=== PATIENT | female | born 1965 | race Caucasian/White ===

== ENCOUNTER 2020-10-02 16:32 | Outpatient (CLI) | payer OTHER, SELFPAY ==
--- NOTE | ~2020-10-02 | MM_ITS ---
EXAMINATION: MM screening zane BI w juni HISTORY: Screening mammogram TECHNIQUE: Craniocaudal and mediolateral oblique 3-D tomosynthesis images were obtained and synthetic 2-D images were generated. CAD analysis was submitted and interpreted. COMPARISON: 07/03/2019, , 01/17/2017 bilateral digital screening mammogram examinations BREAST PARENCHYMAL COMPOSITION: There are scattered areas of fibroglandular density. FINDINGS: Benign appearing stable circumscribed intramammary upper outer quadrant right breast lymph node. There is no evidence of suspicious mass, calcification, or architectural distortion to suggest malignancy in either breast. There has been no suspicious interval change. IMPRESSION: 1. No mammographic evidence of malignancy. 2. Recommend routine screening mammography in one year. BI-RADS Category 2: Benign finding(s). Reviewed, dictated and finalized at location A. TER PROJECTIONIST
== END 2020-10-02 16:33 | disposition home or self-care (01) ==
PROVIDERS: PCP Family Medicine; Visit Provider Nurse Practitioner
DX: Z12.31 Encounter for screening mammogram for malignant neoplasm of breast (principal)
CPT/HCPCS: 77063; 77067

== ENCOUNTER 2020-10-25 08:58 | Outpatient (CLI) | payer OTHER, SELFPAY ==
--- NOTE | ~2020-10-25 | DEXA_ITS ---
Bone Density Report Name: Meche Angel Age: 54 Sex: Female Ethnicity: White Date of : 1965 Indication: osteopenia; height loss; postmenopausal Referring Provider: JESSICA, SEBASTIAN Study: Bone densitometry was performed. Exam Date: October 25, 2020 Accession number: [id number] Bone Density: Region BMD T-score Z-score Classification AP Spine (L1-L4) 0.792 -2.3 -1.2 Osteopenia Femoral Neck (Left) 0.600 -2.2 -1.1 Osteopenia Total Hip (Left) 0.761 -1.5 -0.8 Osteopenia Total Hip Bilateral Avg 0.738 -1.7 -1.0 Osteopenia Femoral Neck (Right) 0.542 -2.8 -1.7 Osteoporosis Total Hip (Right) 0.714 -1.9 -1.1 Osteopenia World Health Organization criteria for BMD impression classify patients as: Normal (T-score at or above -1.0), Osteopenia (T-score between -1.0 and -2.5), or Osteoporosis (T-score at or below -2.5). 10-year Fracture Risk: FRAX not reported because: Some T-score for Spine Total or Hip Total or Femoral Neck at or below -2.5 Previous Exams: Region Exam Age BMD T-score BMD Change BMD Change Date g/cm2 vs Baseline vs Previous AP Spine(L1-L4) 10/25/2020 54 0.792 -2.3 -0.021(-2.5%) -0.038(-4.6%)* 01/17/2017 51 0.830 -2.0 0.018(2.2%) 0.018(2.2%) 12/26/2014 49 0.812 -2.1 Total Hip(Left) 10/25/2020 54 0.761 -1.5 -0.031(-4.0%)* -0.057(-6.9%)* 01/17/2017 51 0.818 -1.0 0.025(3.2%) 0.025(3.2%) 12/26/2014 49 0.793 -1.2 Total Hip(Right) 10/25/2020 54 0.714 -1.9 -0.015(-2.0%) -0.030(-4.1%)* 01/17/2017 51 0.745 -1.6 0.015(2.1%) 0.015(2.1%) 12/26/2014 49 0.729 -1.7 *Denotes significance at 95% confidence level, LSC for AP Spine = 0.022 g/cm2, LSC for Total Hip = 0.027 g/cm2 Clinical Information Provided by Patient: Has used the following medications: Vitamin D, Calcium Patient maximum height was 66 Menopause Age: 47 Onset of menses at age 12 Number of children 3 Missed period for more than 6 months in a row Impression: The patient has osteoporosis, based on the Right Femoral Neck T-score. The BMD for the AP Spine(L1-L4) decreased, changing by -4.6% since the last DXA exam. The BMD for the Total Hip(Left) decreased, changing by -6.9% since the last DXA exam. The BMD for the Total Hip(Right) decreased, changing by -4.1% since the last DXA exam. Discussion: INCREASED RISK OF FRACTURE. BONE DENSITY IS UNDESIRABLY LOW AT ONE OR MORE SKELETAL SITES, CONSISTENT WITH POSTMENOPAUSAL OSTEOPOROSIS. Thi
== END 2020-10-25 08:59 | disposition home or self-care (01) ==
PROVIDERS: PCP Family Medicine; Visit Provider Nurse Practitioner
DX: M85.88 Other specified disorders of bone density and structure, other site (principal); M85.852 Other specified disorders of bone density and structure, left thigh; M85.851 Other specified disorders of bone density and structure, right thigh; M81.0 Age-related osteoporosis without current pathological fracture
CPT/HCPCS: 77080

== ENCOUNTER 2021-12-05 07:57 | Outpatient (CLI) | payer OTHER, SELFPAY ==
--- NOTE | ~2021-12-05 | MM_ITS ---
EXAMINATION: MM screening zane BI w juni HISTORY: Screening mammogram TECHNIQUE: Craniocaudal and mediolateral oblique 3-D tomosynthesis images were obtained and synthetic 2-D images were generated. CAD analysis was submitted and interpreted. COMPARISON: October 02, 2020, July 03, 2019, 03/28/2018 bilateral screening mammogram examination s BREAST PARENCHYMAL COMPOSITION: There are scattered areas of fibroglandular density. FINDINGS: Stable benign-appearing lymph node in the upper outer right breast. There is no evidence of suspicious mass, calcification, or architectural distortion to suggest malignancy in either breast. There has been no suspicious interval change. IMPRESSION: 1. No mammographic evidence of malignancy. 2. Recommend routine screening mammography in one year. BI-RADS Category 2: Benign finding(s). Reviewed, dictated and finalized at location A.
== END 2021-12-05 07:58 | disposition home or self-care (01) ==
LOC: ANHIMG 07:58
PROVIDERS: PCP Family Medicine; Visit Provider Nurse Practitioner
DX: Z12.31 Encounter for screening mammogram for malignant neoplasm of breast (principal)
CPT/HCPCS: 77063; 77067

== ENCOUNTER 2022-04-24 07:40 | Outpatient (CLI) | payer OTHER, SELFPAY ==
[2022-04-24 08:07] LABS: Alanine Aminotransferase 21 U/L (6-35); Albumin Level 4.5 g/dL (3.5-5.1); Alkaline Phosphatase 85 U/L (38-126); Anion Gap 11 mmol/L (8-16); Aspartate Amino Transferase 31 U/L (14-36); Bilirubin,Total 0.5 mg/dL (0.2-1.3); Blood Urea Nitrogen 13 mg/dL (7-17); Carbon Dioxide 28 mmol/L (22-30); Chloride 101 mmol/L (98-107); Cholesterol 241 mg/dL (0-200); Estimated Glomerular Filt Rate > 60; Glucose 101 mg/dL (65-110); HDL Direct 56 mg/dL; Potassium 3.9 mmol/L (3.4-5.0); Sodium 140 mmol/L (137-145); Triglycerides 68 mg/dL (<150)
[2022-04-24 08:18] LABS: LDL Cholesterol Direct 128 mg/dL
[2022-04-24 09:00] LABS: Thyroid Stimulating Hormone Reflex 0.826 uIU/mL (0.465-4.68)
== END 2022-04-24 07:41 | disposition home or self-care (01) ==
LOC: ANHLAB 07:42
PROVIDERS: PCP Family Medicine; Visit Provider Physician Assistant Medical
DX: E78.2 Mixed hyperlipidemia (principal); R53.83 Other fatigue
CPT/HCPCS: 36415; 80053; 80061; 84443

== ENCOUNTER 2022-09-16 17:03 | Observation (INO) | payer OTHER, SELFPAY ==
[2022-09-16] VITALS (28 sets, daily range): BP systolic 106–154; BP diastolic 58–86; PULSE 59–86; RESP 11–23; TEMP 36.7–36.9; O2SAT 96–100; BMI 22.2
--- NOTE | ~2022-09-16 | XR_ITS ---
EXAMINATION: XR chest 2V DATE: 09/16/2022 17:57 INDICATION: Left upper chest pain radiating into the neck TECHNIQUE: PA and lateral views of the chest were obtained. COMPARISON: Chest radiograph dated 06/03/2015 FINDINGS: The lungs remain clear with no focal airspace opacities, pulmonary edema, pleural effusion or pneumot horax. The cardiomediastinal silhouette is normal. Mild to moderate mid thoracic predominant spondylo sis. IMPRESSION: 1. No acute cardiopulmonary disease. Reviewed, dictated and finalized at location A. 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
--- NOTE | ~2022-09-16 | CT_ITS ---
EXAMINATION: CTA chest PE protocol DATE: 09/16/2022 20:32 INDICATION: Chest pain TECHNIQUE: Computed tomography (CT) pulmonary angiogram of the chest was performed with 100 mL Omnipa que-350 intravenous contrast. Additional 3D reconstructions utilizing coronal maximum intensity proje ction (MIP) were performed. The dose-length product was 153.65 mGy-cm. COMPARISON: None FINDINGS: Excellent contrast opacification of the pulmonary arteries. There is moderate streak artifact from de nse contrast in the superior vena cava and right atrium. Mild scattered respiratory motion artifact w hich does not significantly limit evaluation. No pulmonary embolism. Mild atelectasis at the bilatera l posterior basilar lower lobes. No pneumonia, pulmonary edema, pleural effusion or pneumothorax. Hea rt size is normal. No pericardial effusion. Thoracic aorta is normal in caliber with no dissection. N o pathologically enlarged thoracic lymphadenopathy. There is localized upper abdomen is unremarkable. Mild to moderate thoracic spondylosis. IMPRESSION: 1. No pulmonary embolism or other acute cardiopulmonary disease. Reviewed, dictated and finalized at location A. TH INSURANCE ADJUSTER
--- NOTE | 2022-09-16 17:07 | ECG_ITS ---
Measurements Intervals [place] Rate: 59 P: 60 MA: 136 QRS: 40 QRSD: 106 T: 70 QT: 416 QTc: 415 Interpretive Statements SINUS BRADYCARDIA WITH OCCASIONAL SUPRAVENTRICULAR PREMATURE COMPLEXES RV CONDUCTION DELAY OTHERWISE NORMAL ECG NO PREVIOUS ECG AVAILABLE FOR COMPARISON Electronically Signed On 09-17-2022 13:02:45 COAL DIGGER by Garrett Mckeon M.D.
[2022-09-16 17:32] LABS: Basophils Absolute Auto 0.1 K/mm3 (0.0-0.1); Basophils Percent Auto 0.7 % (0.2-1.2); Eosinophils Absolute Auto 0.3 K/mm3 (0-0.3); Eosinophils Percent Auto 4.3 % (0-4.4); Hematocrit 39.8 % (37.0-47.0); Immature Granulocyte Absolute 0.01 K/mm3 (0.00-0.031); Immature Granulocyte Percent A 0.1 % (0-0.5); Lymphocytes Absolute Auto 2.85 K/mm3 (0.9-3.2); Lymphocytes Percent Auto 39.4 % (18.3-44.2); Mean Corpuscular HGB Conc 32.7 g/dl (32-36); Mean Corpuscular Hemoglobin 29.3 pg (26-34); Mean Corpuscular Volume 89.6 fl (80-100); Mean Platelet Volume 8.9 fl (7.4-10.4); Monocytes Absolute Auto 0.4 K/mm3 (0.1-0.6); Monocytes Percent Auto 6.1 % (2.6-8.5); Neutrophils Absolute Auto 3.6 K/mm3 (1.3-6.7); Neutrophils Percent Auto 49.4 % (45.5-73.1); Platelet Count Result 267 k/mm3 (150-375); Red Blood Count 4.44 M/mm3 (4.2-5.4); Red Cell Distribution Width 12.6 % (11.5-14.5); White Blood Count 7.2 K/mm3 (4.5-10.0)
[2022-09-16 17:36] LABS: INR 1.1; Prothrombin Time 13.3 Seconds (11.1-14.7)
[2022-09-16 17:37] LABS: Partial Thromboplastin Time 27.9 SECONDS (22.3-36.8)
[2022-09-16 17:38] LABS: Alanine Aminotransferase 19 U/L (6-35); Albumin Level 4.8 g/dL (3.5-5.1); Alkaline Phosphatase 95 U/L (38-126); Anion Gap 6 mmol/L (8-16); Aspartate Amino Transferase 31 U/L (14-36); Bilirubin,Total 0.5 mg/dL (0.2-1.3); Blood Urea Nitrogen 14 mg/dL (7-17); Calcium 9.4 mg/dL (8.4-10.2); Carbon Dioxide 30 mmol/L (22-30); Chloride 100 mmol/L (98-107); Estimated Glomerular Filt Rate > 60; Glucose 153 mg/dL (65-110); Lipase 78 U/L (23-300); Potassium 3.8 mmol/L (3.4-5.0); Sodium 136 mmol/L (137-145)
[2022-09-16 17:53] LABS: Troponin I < 0.012 ng/mL (0.000-0.034)
--- NOTE | 2022-09-16 20:02 | ED.CHESTPAIN ---
HPI - Chest Pain General Chief Complaint: Chest Pain Stated Complaint: Chest Pain Time Seen by Provider: 09/16/22 19:16 Source: RN notes reviewed History of Present Illness HPI narrative: Patient presents emergency department from home for chest pain. Patient states for the past week she has been having intermittent chest pain in the left side of the chest. The pain is described as pressure in nature with radiation up into her neck and jaw as well as down her left arm. States that nothing seems to make the pain better or worse she denies any shortness of breath with the symptoms she denies any nausea or vomiting. She denies any previous cardiac history. States that there is family history of cardiac disease. States that she did have similar symptoms back in 2016 and had a heart catheterization at that time that showed no acute process Related Data Allergies Allergy/AdvReac Type Severity Reaction Status Date / Time No Known Allergies Allergy Verified 09/16/22 19:24 Review of Systems Review of Systems: Gen.: Denies fevers or chills ENT: Denies congestion Respiratory: Denies shortness of breath or cough CV: See HPI GI: Denies abdominal pain nausea, emesis or diarrhea Musculoskeletal: Denies back pain or muscle pain Neuro: Denies numbness, tingling, weakness or focal weakness Skin: Denies rash Except as documented, all other systems reviewed and negative [facility] Past Medical History Medical History (Updated 09/16/22 @ 21:40 by Jae Aceves DO) Patient denies significant medical history Family History Family History Mother Hypertension Family history of elevated blood lipids Father Family history of diabetes mellitus in first degree relative Diabetes mellitus Grandparent Family history of cardiovascular disease Social History Social History Smoking status: Never smoker Second hand tobacco smoke exposure: No Alcohol intake: current Exam Narrative: APPEARANCE: No acute distress, nontoxic, resting in bed EYES: EOMI HEENT: Normocephalic, atraumatic, OMM RESPIRATORY: No respiratory distress Clear to auscultation bilaterally with no rhonchi wheezing or rales. CARDIOVASCULAR: Regular rate and rhythm without murmurs rubs or gallops. ABDOMINAL: Soft, nontender, nondistended, no rebound or guarding MUSCULOSKELETAl: Moves all extremities. No clubbing, cyanosis or edema. NEURO: Awake and alert. Following commands, speech normal, no focal deficits SKIN:: Warm, dry. No rashes lesions or abrasions PSYCHIATRIC: Normal affect/mood, Course Course Emergency Course: Review of records able to find Dr Reddy note noting need for cardiac cath of patient's catheter cardiac [facility] and does not have records of cath Called and discussed with Dr. Alvarado for cardiology agrees with consult Called and discussed with Dr. Anne agrees with admission to hospital service Discussed with patient and family results of workup and diagnosis. Discussed need for admission. Patient and family understand and agree to current treatment plan Vital Signs Vital signs: Vital Signs Temperature 98.4 F 09/16/22 17:07 Pulse Rate 65 09/16/22 17:07 Respiratory Rate 18 09/16/22 17:07 Blood Pressure 154/86 H 09/16/22 17:07 Pulse Oximetry 100 09/16/22 17:07 Oxygen Delivery Room Air 09/16/22 17:07 Temperature 98.4 F 09/16/22 17:07 Pulse Rate 70 09/16/22 21:05 Respiratory Rate 17 09/16/22 21:05 Blood Pressure 124/74 09/16/22 21:01 Pulse Oximetry 100 09/16/22 21:05 Oxygen Delivery Room Air 09/16/22 17:07 MDM - Chest Pain Differential Diagnosis Differential diagnosis: Likely pneumothorax, unstable angina pectoris, atypical chest pain, st elevation myocardial infarction, costochondritis and biliary colic Lab Data 09/16/22 17:16 09/16/22 17:17
[2022-09-16 20:50] LABS: Troponin I < 0.012 ng/mL (0.000-0.034)
--- NOTE | 2022-09-16 21:04 | PM.IMHP ---
H&P: HPI History of Present Illness Date/Time: 09/16/22 21:04 Chief Complaint: Chest pain Narrative: This is a 56-year-old female with known significant past medical history. Patient presents today to the emergency room due to chest pain localized to the precordial area with radiation to the jaw 0 and the arm on the left side a was while at rest patient has had catheterization back in 2016 but was found with no obstruction on a no stents were placed at that time she denies any on an of chest pain as of lately denies any nausea, vomiting, lightheadedness, shortness of breath, cough, sputum production, no nausea, no vomiting, no abdominal pain, no syncope, no near syncope no lightheadedness, no PND, no orthopnea, no leg swelling.Preliminary workup was significant for an elevated D-dimer a CT angiogram of the chest was reported as: FINDINGS: Excellent contrast opacification of the pulmonary arteries. There is moderate streak artifact from dense contrast in the superior vena cava and right atrium. Mild scattered respiratory motion artifact which does not significantly limit evaluation. No pulmonary embolism. Mild atelectasis at the bilateral posterior basilar lower lobes. No pneumonia, pulmonary edema, pleural effusion or pneumothorax. Heart size is normal. No pericardial effusion. Thoracic aorta is normal in caliber with no dissection. No pathologically enlarged thoracic lymphadenopathy. There is localized upper abdomen is unremarkable. Mild to moderate thoracic spondylosis. IMPRESSION: 1. No pulmonary embolism or other acute cardiopulmonary disease. A chest x-ray was reported as: FINDINGS: The lungs remain clear with no focal airspace opacities, pulmonary edema, pleural effusion or pneumothorax. The cardiomediastinal silhouette is normal. Mild to moderate mid thoracic predominant spondylosis. IMPRESSION: 1. No acute cardiopulmonary disease. EKG was reported as: SINUS BRADYCARDIA WITH OCCASIONAL SUPRAVENTRICULAR PREMATURE COMPLEXES INCOMPLETE RIGHT BUNDLE BRANCH BLOCK [90+ ms QRS DURATION, TERMINAL R IN V1/V2, 40+ ms S IN I/aVL/V4/V5/V6] NO PREVIOUS ECG AVAILABLE FOR COMPARISON Req Provider: Shani VELASCO Comment [id number] Troponins x3 has been undetectable Review of Systems Review of Systems: Chest pain on the precordial area with radiation to the jaw O the neck shoulder and arm occurred while at rest Constitutional: Constitutional: Denies chills, Denies fever(s), Denies malaise and Denies weakness Eyes: Eyes: Denies change in vision ENT: Denies dysphagia and Denies odynophagia Cardiovascular: Cardiovascular: Denies chest pain, Reports chest pain at rest, Denies leg edema, Denies lightheadedness, Reports radiating jaw, neck or arm pain, Denies palpitations and Denies dyspnea Respiratory: Respiratory: Denies chest congestion, Denies cough, Denies excessive phlegm production, Denies pain on inspiration, Denies dyspnea and Denies dyspnea on exertion Gastrointestinal: Gastrointestinal: Denies abdominal pain, Denies dyspepsia, Denies heartburn, Denies diarrhea, Denies nausea and Denies vomiting Genitourinary: Genitourinary: Denies dysuria Musculoskeletal: Musculoskeletal: Denies back pain, Denies myalgias, Denies joint swelling and Denies muscle weakness Integumentary/Breasts: Skin/Breast: Denies rash Neurologic: Denies vertigo, Denies dizziness, Denies focal weakness and Denies Sensory deficit (Neuro) Psychiatric: Psychiatric: Reports no additional psychiatric complaints and Reports as per HPI Endocrine: Endocrine: Denies cold intolerance, Denies flushing, Denies heat intolerance, Denies polyphagia, Denies polydipsia and Denies palpitations Hematologic/Lymphatic: Hematologic/Lymphatic: Reports no additional hematologic/lymphatic complaints and Reports as per HPI Allergic/Immunologic: Allergic/Immunologic: Reports no additional allergic/immunologic complaints and Reports as per HPI [facility] Past Medical History Medical History
[2022-09-16] MEDS: ASPIRIN 81 MG CHEWABLE TABLET 324 MG PO (21:19)
--- NOTE | 2022-09-16 23:49 | ADMGEN ---
This patient, Meche Angel, was admitted to Intensive Care Unit-8 on 09/16/22 at 2330. Patient/family oriented to hospital policies and general routines including ID bracelet, bed and alarms, visiting hours, pain management, procedures, bathroom and other care routines, personal items, smoking policy, room service/diet, and visiting hours. Information on how to activate the Rapid Response Team has been discussed. Patient/Family are encouraged to report perceived risks to care and to ask questions if they do not understand what they are told or what they should do.
[2022-09-17] VITALS (38 sets, daily range): BP systolic 113–122; BP diastolic 76–77; PULSE 48–91; RESP 12–24; TEMP 36.6; O2SAT 90–100
[2022-09-17 00:08] LABS: Troponin I < 0.012 ng/mL (0.000-0.034)
[2022-09-17 05:02] LABS: Alanine Aminotransferase 17 U/L (6-35); Albumin Level 4.3 g/dL (3.5-5.1); Alkaline Phosphatase 92 U/L (38-126); Anion Gap 6 mmol/L (8-16); Aspartate Amino Transferase 26 U/L (14-36); Bilirubin,Total 0.4 mg/dL (0.2-1.3); Blood Urea Nitrogen 15 mg/dL (7-17); Carbon Dioxide 27 mmol/L (22-30); Chloride 104 mmol/L (98-107); Estimated CRCL calculation 72 ml/min; Estimated Glomerular Filt Rate > 60; Glucose 106 mg/dL (65-110); Potassium 3.8 mmol/L (3.4-5.0); Sodium 137 mmol/L (137-145)
[2022-09-17 05:07] LABS: Basophils Absolute Auto 0.1 K/mm3 (0.0-0.1); Eosinophils Absolute Auto 0.4 K/mm3 (0-0.3); Eosinophils Percent Auto 5.4 % (0-4.4); Hematocrit 39.2 % (37.0-47.0); Hemoglobin 12.9 g/dL (12.0-15.0); Immature Granulocyte Absolute 0.02 K/mm3 (0.00-0.031); Immature Granulocyte Percent A 0.3 % (0-0.5); Lymphocytes Absolute Auto 2.67 K/mm3 (0.9-3.2); Lymphocytes Percent Auto 37.9 % (18.3-44.2); Mean Corpuscular HGB Conc 32.9 g/dl (32-36); Mean Corpuscular Hemoglobin 29.3 pg (26-34); Mean Corpuscular Volume 89.1 fl (80-100); Mean Platelet Volume 9.1 fl (7.4-10.4); Monocytes Absolute Auto 0.4 K/mm3 (0.1-0.6); Monocytes Percent Auto 5.7 % (2.6-8.5); Neutrophils Absolute Auto 3.5 K/mm3 (1.3-6.7); Neutrophils Percent Auto 49.7 % (45.5-73.1); Platelet Count Result 260 k/mm3 (150-375); Red Cell Distribution Width 12.6 % (11.5-14.5); White Blood Count 7.1 K/mm3 (4.5-10.0)
--- NOTE | 2022-09-17 09:32 | PM.CNCAR ---
Assessment and Plan Assessment and plan (1) Chest pain: Code(s): R07.9 - Chest pain, unspecified Status: Acute Plan this is a 56-year-old lady with several days of intermittent nonexertional chest pain atypical of angina. Acute coronary syndrome has been ruled out by serial troponins. She is feeling well this morning and is asymptomatic. Her principal concerning risk factor is prevalent family history in females in her family. On the other hand she is known not to have coronary artery disease in 2016 when she had similar symptoms which led to a negative angiogram being performed. In my opinion it is fine to discharge her at this time I will arrange for a stress echocardiogram to be done in my office as an outpatient. Garrett Mckeon MD [facility] History of Present Illness History of Present Illness Consult date/time: 09/17/22 09:32 Consult reason: chest pain Reason For Visit: Chest Pain Narrative: This is a very pleasant 56-year-old lady I am seeing at the request of the hospitalist's because of chest pain. The patient is known not to have coronary artery disease and came to the hospital yesterday because of chest pain she has been experiencing intermittently for about 3 days. She describes I episodes of a central dull pain that happens to occur off and on in an unpredictable fashion the pain is not exertional it is not associated with air hunger diaphoresis or nausea. She does walk about an hour per day for exercise and has not noticed that walking is triggering any of these symptoms. The patient had similar symptomatology back in 2016 there was referred to our practice she was seen by 1 of my partners and brought to the pit laborer at [facility] and found not to have any coronary artery disease at that time. This was done primarily because of a family history of probable and coronary artery disease in women in the paternal side of the family. 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 Review of Systems Constitutional: Constitutional: Reports no additional constitutional complaints Eyes: Eyes: Reports no additional eye complaints ENT: Reports system reviewed and no additional complaints, except as documented Cardiovascular: Cardiovascular: Reports as per HPI Respiratory: Respiratory: Reports no additional respiratory complaints Gastrointestinal: Gastrointestinal: Reports no additional gastrointestinal complaints Musculoskeletal: Musculoskeletal: Reports no additional musculoskeletal complaints Integumentary/Breasts: Skin/Breast: Reports system reviewed and no additional complaints, except as docu Neurologic: Reports system reviewed and no additional complaints, except as documented Endocrine: Endocrine: Reports no additional endocrine complaints Hematologic/Lymphatic: Hematologic/Lymphatic: Reports no additional hematologic/lymphatic complaints Allergic/Immunologic: Allergic/Immunologic: Reports no additional allergic/immunologic complaints [facility] Past Medical History Medical History (Updated 09/16/22 @ 21:40 by Jae Aceves DO) Patient denies significant medical history Family History Family History (Updated 09/17/22 @ 00:00 by Neelima Funes RN) Mother Family history of elevated blood lipids Hypertension Father Diabetes mellitus Family history of diabetes mellitus in first degree relative Grandparent Family history of cardiovascular disease Sibling Carotid artery embolism Arthritis, rheumatoid Social History Social History Smoking status: Never smoker Second hand tobacco smoke exposure: No Alcohol intake: current Substance use: never
--- NOTE | 2022-09-17 11:01 | PM.DS ---
DS: Admitting Diagnosis Discharge Date September 17, 2022 Admitting Diagnosis Chest pain DS: Discharge Diagnosis Discharge Diagnosis (1) Chest pain: Code(s): R07.9 - Chest pain, unspecified Status: Acute DS: Summary Hospital Course Hospital Course: Admitted for chest pain, negative workup. Cardiology consult and recommended outpatient stress test. This will be set up by Cardiology Time Spent with Patient Time attestation: Total time spent providing and/or coordinating discharge services: Exam Narrative: Patient is laying in a stretcher Const: General: comfortable, no acute distress, well developed, alert, awake, average body habitus and other (Apprehensive) Nutritional Appearance: average body habitus Orientation/consciousness: patient oriented x3 HENMT: Head: normal to inspection, normocephalic and atraumatic Ears: hearing grossly normal bilaterally Face/Nose/Sinus: normal facial exam Face and sinus: normal facial exam Eyes: General: appearance normal, both eyes and all related structures Pupils: Equal, round and reactive pupils present EOM: EOMs intact bilaterally Neck: Neck: full ROM, no lymphadenopathy and no JVD Thyroid: thyroid normal Lymphatic: no lymphadenopathy noted Resp: Effort & Inspection: normal respiratory effort and able to speak in complete sentences Auscultation: clear to auscultation bilaterally Cardio: Jugular venous distension: no JVD Rate: regular rate Rhythm: regular rhythm Heart sounds: S1 normal heart sound present and S2 normal heart sound present : General: Yes deferred Skin: Rashes: no rashes Wounds: no wounds Neuro: General: patient oriented x3 and CN's II-XI intact bilaterally Cranial nerves: Yes CN's II-XII intact bilaterally and Yes Equal, round and reactive pupils present Cognition (Neuro): normal cognition Speech: normal speech Gait exam (Neuro): Normal gait present Motor exam (neuro): 5/5 motor strength present throughout Sensory Exam: No Sensory deficit (Neuro) Extrem: General: normal to inspection, full ROM, no joint enlargement and no pedal edema DS: Data Data Completed and Pending Labs on day of discharge: Labs from last 24 hours 09/17/22 09/17/22 09/16/22 04:44 04:44 23:31 WBC 7.1 RBC 4.40 Hgb 12.9 Hct 39.2 MCV 89.1 MCH 29.3 MCHC 32.9 RDW 12.6 Plt Count 260 MPV 9.1 Immature Gran % (Auto) 0.3 Neut % (Auto) 49.7 Lymph % (Auto) 37.9 [place] % (Auto) 5.7 Eos % (Auto) 5.4 H Baso % (Auto) 1.0 Lymph # (Auto) 2.67 [place] # (Auto) 0.4 Eos # (Auto) 0.4 H Baso # (Auto) 0.1 Abs Immat Gran (auto) 0.02 Absolute Neuts (auto) 3.5 Absolute Nucleated RBC 0.0 Nucleated RBC % 0.0 PT INR APTT D-Dimer Sodium 137 Potassium 3.8 Chloride 104 Carbon Dioxide 27 Anion Gap 6 L BUN 15 Creatinine 0.70 Estim Creat Clear Calc 72 Estimated GFR > 60 Glucose 106 Calcium 9.0 Total Bilirubin 0.4 AST 26 ALT 17 Alkaline Phosphatase 92 Troponin I < 0.012 Total Protein 7.0 Albumin 4.3 Lipase 09/16/22 09/16/22 09/16/22 20:13 17:17 17:16 WBC RBC Hgb Hct MCV MCH MCHC RDW Plt Count MPV Immature Gran % (Auto) Neut % (Auto) Lymph % (Auto) [place] % (Auto) Eos % (Auto) Baso % (Auto) Lymph # (Auto) [place] # (Auto) Eos # (Auto) Baso # (Auto) Abs Immat Gran (auto) Absolute Neuts (auto) Absolute Nucleated RBC Nucleated RBC % PT INR APTT D-Dimer 0.50 H Sodium 136 L Potassium 3.8 Chloride 100 Carbon Dioxide 30 Anion Gap 6 L BUN 14 Creatinine 0.80 Estim Creat Clear Calc Not Reportable Estimated GFR > 60 Glucose 153 H Calcium 9.4 Total Bilirubin 0.5 AST 31 ALT 19 Alkaline Phosphatase 95 Troponin I < 0.012 < 0.012 Total Protein 8.0 Albumin 4.8 Lipase 78
== END 2022-09-17 11:03 | disposition home or self-care (01) ==
LOC: ANHED 21:40 → ANHICU 23:17
PROVIDERS: Emergency Medicine; Admitting Provider Internal Medicine; Emergency Provider Emergency Medicine; PCP Family Medicine; Visit Provider Chiropractor
DX: R07.9 Chest pain, unspecified (principal); R00.1 Bradycardia, unspecified; I45.10 Unspecified right bundle-branch block; I45.89 Other specified conduction disorders; Z82.49 Family history of ischemic heart disease and other diseases of the circulatory system; F10.90 Alcohol use, unspecified, uncomplicated; Z79.899 Other long term (current) drug therapy
CPT/HCPCS: 36415; 71046; 71275; 80053; 83690; 84484; 85025; 85380; 85610; 85730; 93005; 99285; A9270; G0378; Q9967

== ENCOUNTER 2022-12-01 16:33 | Outpatient (CLI) | payer OTHER, SELFPAY ==
--- NOTE | ~2022-12-01 | US_ITS ---
EXAMINATION: US axilla LT HISTORY: Asymmetry of the left axilla TECHNIQUE: Targeted ultrasound is performed in the area of clinical concern. FINDINGS: No suspicious cystic or solid mass is identified in the left axilla to correspond to the pa lpable asymmetry. Normal axillary soft tissues are identified. IMPRESSION: No specific sonographic correlate is identified for the reported palpable abnormality of concern. Fur ther evaluation at this time should be based on clinical assessment. Continued follow-up physical exa mination is recommended. BI-RADS Category 1: Negative Reviewed, dictated and finalized at location L. IMPRESSION: No specific sonographic correlate is identified for the reported palpable abnor mality of concern. Further evaluation at this time should be based on clinical assessment. Continued follow-up physical examination is recommended. BI-RADS Category 1: Negative
== END 2022-12-01 16:34 | disposition home or self-care (01) ==
PROVIDERS: PCP Family Medicine; Visit Provider Nurse Practitioner
DX: M79.89 Other specified soft tissue disorders (principal)
CPT/HCPCS: 76882

== ENCOUNTER 2023-06-18 08:48 | Outpatient (CLI) | payer OTHER, SELFPAY ==
--- NOTE | ~2023-06-18 | DEXA_ITS ---
Bone Density Report Name: BRADFORD OSHEA Age: 57 Sex: Female Ethnicity: White Date of : 1965 Indication: osteopenia; postmenopausal Referring Provider: JESSICA, SEBASTIAN Study: Bone densitometry was performed. Exam Date: June 18, 2023 Accession number: [id number] Bone Density: Region BMD T-score Z-score Classification AP Spine(L1-L4) 0.752 -2.7 -1.4 Osteoporosis Femoral Neck (Left) 0.587 -2.4 -1.1 Osteopenia Total Hip (Left) 0.733 -1.7 -0.8 Osteopenia Femoral Neck (Right) 0.538 -2.8 -1.6 Osteoporosis Total Hip (Right) 0.681 -2.1 -1.3 Osteopenia Total Hip Mean 0.707 -1.9 -1.1 Osteopenia World Health Organization criteria for BMD impression classify patients as: Normal (T-score at or above -1.0), Osteopenia (T-score between -1.0 and -2.5), or Osteoporosis (T-score at or below -2.5). 10-year Fracture Risk: FRAX not reported because: Some T-score for Spine Total or Hip Total or Femoral Neck at or below -2.5 Previous Exams: Region Exam Age BMD T-score BMD Change BMD Change Date g/cm2 vs Baseline vs Previous AP Spine (L1-L4) 06/18/2023 57 0.752 -2.7 -0.061 (-7.5%) -0.040 (-5.1%) 10/25/2020 54 0.792 -2.3 -0.021 (-2.5%) -0.038 (-4.6%) 01/17/2017 51 0.830 -2.0 0.018 (2.2%) 0.018 (2.2%) 12/26/2014 49 0.812 -2.1 Total Hip(Left) 06/18/2023 57 0.733 -1.7 -0.059 (-7.5%) -0.028 (-3.7%) 10/25/2020 54 0.761 -1.5 -0.031 (-4.0%) -0.057 (-6.9%) 01/17/2017 51 0.818 -1.0 0.025 (3.2%) 0.025 (3.2%) 12/26/2014 49 0.793 -1.2 Total Hip(Right) 06/18/2023 57 0.681 -2.1 -0.048 (-6.6%) -0.033 (-4.7%) 10/25/2020 54 0.714 -1.9 -0.015 (-2.0%) -0.030 (-4.1%) 01/17/2017 51 0.745 -1.6 0.015 (2.1%) 0.015 (2.1%) 12/26/2014 49 0.729 -1.7 *Denotes significance at 95% confidence level, LSC for AP Spine = 0.022 g/cm2, LSC for Total Hip = 0.027 g/cm2 Clinical Information Provided by Patient: Has used the following medications: Vitamin D, Calcium Patient maximum height was 66.5 Menopause Age: 47 Does not regularly consume dairy products Drinks caffeinated beverages Onset of menses at age 12 Number of children 3 Impression: The patient has osteoporosis, based on the Right Femoral Neck T-score. The BMD for the AP Spine (L1-L4) decreased, changing by -5.1% since the last DXA exam. The BMD for the Total Hip(Left) decreased, changing by -3.7% since the last DXA exam. The BMD for the
== END 2023-06-18 08:49 | disposition home or self-care (01) ==
PROVIDERS: PCP Family Medicine; Visit Provider Nurse Practitioner
DX: M81.0 Age-related osteoporosis without current pathological fracture (principal)
CPT/HCPCS: 77080

== ENCOUNTER 2023-07-08 15:43 | Outpatient (CLI) | payer OTHER, SELFPAY ==
--- NOTE | ~2023-07-08 | MM_ITS ---
EXAMINATION: MM screening [facility] BI w juni HISTORY: Screening mammogram TECHNIQUE: Craniocaudal and mediolateral oblique 3-D tomosynthesis images were obtained and synthetic 2-D images were generated. CAD analysis was submitted and interpreted. COMPARISON: 12/05/2021, 10/02/2020, 07/03/2019 BREAST PARENCHYMAL COMPOSITION: The breasts are almost entirely fatty. FINDINGS: An intramammary lymph node is noted in the upper outer quadrant of the right breast. No ty picious mass, calcification, or architectural distortion are identified in either breast to suggest m alignancy. There has been no suspicious interval change. IMPRESSION: 1. No mammographic evidence of malignancy. 2. Recommend routine screening mammography in one year. BI-RADS Category 2: Benign finding(s). Reviewed, dictated and finalized at location A. ORIAN LITERATURE PROFESSOR
== END 2023-07-08 15:44 | disposition home or self-care (01) ==
LOC: ANHIMG 15:44
PROVIDERS: PCP Family Medicine; Visit Provider Nurse Practitioner
DX: Z12.31 Encounter for screening mammogram for malignant neoplasm of breast (principal)
CPT/HCPCS: 77063; 77067

== ENCOUNTER 2024-01-14 07:02 | Outpatient (CLI) | payer OTHER, SELFPAY ==
[2024-01-14 07:20] LABS: Hematocrit 41.5 % (37.0-47.0); Hemoglobin 13.6 g/dL (12.0-15.0); Mean Corpuscular HGB Conc 32.8 g/dl (32-36); Mean Corpuscular Hemoglobin 29.3 pg (26-34); Mean Corpuscular Volume 89.4 fl (80-100); Mean Platelet Volume 8.9 fl (7.4-10.4); Platelet Count Result 241 k/mm3 (150-375); Red Blood Count 4.64 M/mm3 (4.2-5.4); Red Cell Distribution Width 12.7 % (11.5-14.5); White Blood Count 5.6 K/mm3 (4.5-10.0)
[2024-01-14 07:33] LABS: Alanine Aminotransferase 15 U/L (6-35); Albumin Level 4.5 g/dL (3.5-5.1); Alkaline Phosphatase 83 U/L (38-126); Anion Gap 5 mmol/L (4-12); Aspartate Amino Transferase 29 U/L (14-36); Bilirubin,Total 0.6 mg/dL (0.2-1.3); Blood Urea Nitrogen 10 mg/dL (7-17); Calcium 9.3 mg/dL (8.4-10.2); Carbon Dioxide 29 mmol/L (22-30); Chloride 105 mmol/L (98-107); Cholesterol 236 mg/dL (0-200); Estimated Glomerular Filt Rate > 60; Glucose 101 mg/dL (65-110); HDL Direct 56 mg/dL; Potassium 4.1 mmol/L (3.4-5.0); Sodium 139 mmol/L (137-145); Triglycerides 79 mg/dL (<150)
[2024-01-14 07:44] LABS: LDL Cholesterol Direct 135 mg/dL
[2024-01-14 08:04] LABS: Free T4 Free Thyroxine 1.35 ng/mL (0.78-2.19)
[2024-01-17 11:39] LABS: Vitamin D 1,25 (OH)2 Total 59 pg/mL (18-72); Vitamin D2 1,25 (OH)2 <8 pg/mL; Vitamin D3 1,25 (OH)2 59 pg/mL
== END 2024-01-14 07:03 | disposition home or self-care (01) ==
LOC: ANHLAB 07:04
PROVIDERS: PCP Family Medicine; Visit Provider Physician Assistant
DX: E55.9 Vitamin D deficiency, unspecified (principal); Z13.220 Encounter for screening for lipoid disorders; R53.83 Other fatigue; D64.9 Anemia, unspecified; Z13.1 Encounter for screening for diabetes mellitus
CPT/HCPCS: 36415; 80053; 80061; 82652; 84439; 84443; 85027

== ENCOUNTER 2024-02-27 07:56 | Outpatient (CLI) | payer OTHER, SELFPAY | END 2024-02-27 07:57 | disposition home or self-care (01) | LOC: ANHAUDIO 07:57 | PROVIDERS: PCP Family Medicine; Visit Provider Physician Assistant | DX: H93.19 Tinnitus, unspecified ear (principal); H90.3 Sensorineural hearing loss, bilateral | CPT/HCPCS: 92557; 92567 ==

== ENCOUNTER 2024-05-09 16:25 | Outpatient (CLI) | payer OTHER, SELFPAY ==
--- NOTE | ~2024-05-09 | XR_ITS ---
EXAMINATION: XR thoracic spine 3V DATE: 05/09/2024 16:43 INDICATION: Thoracic spine pain. TECHNIQUE: 3 views of thoracic spine on 4 radiographs were obtained. COMPARISON: Chest 2 views 09/16/2022 FINDINGS: There is 7 degrees levocurvature of thoracic spine. Vertebral body heights are normal. Ther e is mildly decreased disc height at multiple levels. There is moderately decreased disc height from T5-T6 through T8-T9. IMPRESSION: 1. Moderate thoracic spondylosis. Reviewed, dictated and finalized at location A.
--- NOTE | ~2024-05-09 | XR_ITS ---
EXAMINATION: XR chest 2V DATE: 05/09/2024 16:43 INDICATION: Other chest pain. TECHNIQUE: Frontal and lateral views of the chest were obtained. COMPARISON: Chest 2 views 09/16/2022 FINDINGS: There is no pneumonia, pleural effusion, or pneumothorax. The heart size is normal. IMPRESSION: 1. No acute cardiopulmonary disease. Reviewed, dictated and finalized at location A.
== END 2024-05-09 16:26 | disposition home or self-care (01) ==
LOC: ANHIMG 16:28
PROVIDERS: PCP Family Medicine; Visit Provider Family Medicine
DX: R07.89 Other chest pain (principal); M47.894 Other spondylosis, thoracic region
CPT/HCPCS: 71046; 72072

== ENCOUNTER 2024-10-12 08:50 | Emergency (ER) | payer OTHER, SELFPAY ==
--- NOTE | 2024-10-12 08:58 | ED_ITS ---
HPI - URI/Sore Throat General Chief Complaint: Upper Respiratory Infection Stated Complaint: throat and ear pain Time Seen by Provider: 10/12/24 08:58 Source: patient Mode of arrival: ambulatory Limitations: no limitations History of Present Illness HPI Narrative: Patient is a 58-year-old female who presents with throat and left ear pain that has significantly worsened over the last 4 days. Denies any congestion, cough, fever, chills, nausea, vomiting, diarrhea. Patient has been taking Tylenol ibuprofen. Denies taking any allergy or sinus relief medication. Related Data Home Medications ?Medication ?Instructions ?Recorded ?Confirmed ?Last Taken ?Type calcium 600 mg (as 1 tablet PO DAILY 09/17/22 05/09/24 Unknown History carbonate)-vitamin D3 5 mcg (200 unit) tablet diphenhydramine HCl 25 mg tablet 25 mg PO HS PRN Congestion 09/17/22 05/09/24 Unknown History (Benadryl Allergy) oyvotigm-hvy-nkcw-FA-Ca carb-vit K 1 tablet PO DAILY 09/17/22 05/09/24 Unknown History 18 mg iron-400 mcg-500 mg tablet Allergies Allergy/AdvReac Type Severity Reaction Status Date / Time No Known Allergies Allergy Verified 10/12/24 09:15 Review of Systems Review of Systems: All systems reviewed & are unremarkable except as noted in HPI and below Constitutional: Constitutional: Denies chills, Denies fatigue, Denies fever(s), Denies headache(s), Denies malaise and Denies weakness Eyes: Eyes: Denies blurry vision, Denies itchy eyes and Denies loss of vision ENT: Reports otalgia, Denies headache(s), Denies nasal congestion, Denies sinus pain and Reports sore throat Cardiovascular: Cardiovascular: Denies chest pain, Denies irregular heart rhythm and Denies dyspnea Respiratory: Respiratory: Denies cough and Denies dyspnea Gastrointestinal: Gastrointestinal: Denies abdominal pain, Denies diarrhea, Denies nausea and Denies vomiting Musculoskeletal: Musculoskeletal: Denies back pain, Denies myalgias and Denies arthralgias Integumentary/Breasts: Skin/Breast: Denies pruritus and Denies rash Neurologic: Denies headache(s), Denies loss of vision and Denies weakness Psychiatric: Psychiatric: Reports no additional psychiatric complaints Endocrine: Endocrine: Denies fatigue Allergic/Immunologic: Allergic/Immunologic: Denies itchy eyes PMFSH Past Medical History Medical History Osteoporosis Patient denies significant medical history Family History Family History Mother Family history of elevated blood lipids Hypertension Father Diabetes mellitus Family history of diabetes mellitus in first degree relative Grandparent Family history of cardiovascular disease Sibling Carotid artery embolism Arthritis, rheumatoid Social History Social History Smoking status: Never smoker Second hand tobacco smoke exposure: No Alcohol intake: current Substance use: never Substance use type: does not use Lack of Transportation: No Lack of Food: Never True Current Housing: I Have Housing Concerned About Future Housing: No Difficulty Paying Gas/Electric Bills: No Difficulty Paying for Meds: No Currently Unemployed: No Education: Associate Degree Difficulty w/ Childcare or Family Care: No Spiritual care concerns: No Comments At time of signature, agree with nursing past medical, surgical, social and family history. There is no relevant family history pertinent to the presenting complaint. Exam Const: General: cooperative, healthy appearing, comfortable, no acute distress and well nourished Nutritional Appearance: well nourished Orientation/consciousness: patient oriented x3 Limitations: no limitations HENMT: Head: normal to inspection, normocephalic and atraumatic Ears: hearing grossly normal bilaterally, external ears normal, EAC's normal, no periauricular adenopathy and TM abnormal bulging on the left and erythematous on the left Face/Nose/Sinus: Normal external nose present, Normal nasal mucous membranes and turbinates present, normal facial exam, sinuses nontender and face symmetric Face and sinus: normal facial exam, sinuses nontender and face symmetric Mouth: Yes Normal oral and palatal mucosa present, Yes lip normal, Yes tongue normal, Yes Normal salivary glands and ducts present, Yes oropharynx normal and Yes moist mucous membranes Teeth and gingiva: dentition normal Throat: posterior oropharynx normal, tonsils normal and uvula midline Eyes: General: appearance normal, both eyes and all related structures Alignment and Position: alignment normal and position normal Periorbital: periorbital findings normal Eyelids: eyelids normal Pupils: Equal, round and reactive pupils present Neck: Neck: normal visual inspection, full ROM, no lymphadenopathy and supple Chest: Chest palpation & inspection: normal inspection of the chest and normal palpation of entire chest wall Resp: Effort & Inspection: normal respiratory effort and able to speak in complete sentences Auscultation: clear to auscultation bilaterally, no crackles, no rales, no rhonchi and no wheezes Cardio: Rate: regular rate Rhythm: regular rhythm Heart sounds: S1 normal heart sound present and S2 normal heart sound present GI: Inspection: normal to inspection Skin: General skin exam: normal color and no rashes or lesions noted Neuro: General: patient oriented x3 and moves all extremities Cranial nerves: Yes Equal, round and reactive pupils present Speech: normal speech Gait exam (Neuro): Normal gait present Extrem: General: normal to inspection, full ROM and no edema Psych: Appearance: grossly normal and well kempt Mental Status: mental status grossly normal Speech and movement: Normal speech and movement present Affect: normal affect Attitude: cooperative Thought process: Normal thought process present Course Course Emergency Course: Discharge instructions reviewed with patient, as well as provided in writing pe r nursing staff. The instructions also include specific and strict return/GO TO THE ER as well as f/u information. All questions have been answered, and the patient deny any further questions with discharge and discharge plan. Portions of this record may have been created with voice recognition software Level of Care: Express Care Visit Vital Signs Vital signs: Vital Signs Temperature 37.1 C 10/12/24 09:14 Pulse Rate 69 10/12/24 09:14 Respiratory Rate 16 10/12/24 09:14 Blood Pressure 114/61 10/12/24 09:14 Pulse Oximetry 99 10/12/24 09:14 Oxygen Delivery Room Air 10/12/24 09:14 Temperature 37.1 C 10/12/24 09:14 Pulse Rate 69 10/12/24 09:14 Respiratory Rate 16 10/12/24 09:14 Blood Pressure 114/61 10/12/24 09:14 Pulse Oximetry 99 10/12/24 09:14 Oxygen Delivery Room Air 10/12/24 09:14 Reviewed MDM - URI/Sore Throat MDM Narrative Medical decision making narrative: Pt well hydrated appearing, in no respiratory distress, hemodynamically stable. Recommend supportive care. The patient is stable at time of discharge the clinical impression was discussed and the patient was given the opportunity to ask questions, which were addressed as completely as possible given the information available at present. Anticipatory guidance and return to care precautions were discussed and the importance of primary care follow-up was stressed and encouraged. The patient voiced understanding of the plan, indications to return, and the need for follow-up. Differential diagnosis considered: Bronchitis, Hamilton virus, strep pharyngitis, allergic rhinitis, upper respiratory tract infection, sinusitis, rhinosinusitis, nasopharyngitis. viral pharyngitis, otitis media, otitis externa, otitis effusion, foreign body, cerumen impaction, viral syndrome, and influenza.? Exam findings show no acute concerns or changes; patient is non-toxic appearing and is in no distress.? Patient is appropriate for outpatient treatment and follow- up.? Medical Records Attestation: I reviewed the patient's medical records. Lab Data Attestation: I reviewed the patient's lab results. Labs: Lab Results 10/12/24 Range/Units 09:23 POC Grp A Strep Screen Negative (Negative) Discharge Plan Discharge Clinical Impression: Otitis media Qualifiers: Otitis media type: suppurative Chronicity: acute Laterality: left Recurrence: non-recurrent Spontaneous tympanic membrane rupture: without spontaneous rupture Qualified Code(s): H66.002 - Acute suppurative otitis media without spontaneous rupture of ear drum, left ear Patient Disposition: Home, Self-Care Condition: Stable Instructions: Ear Infection (GEN) Additional Instructions: Take antibiotics as directed. Recommend antihistamine such as Benadryl at night time and Zyrtec or Sofía during the day until symptoms improve Flonase nasal spray, 1 spray in each nostril once daily until symptoms improve Also, recommend symptomatic treatment includes: rest, fluids, and increase humidity of the air at home. Recommend Acetaminophen as directed on the bottle to reduce fever, pain Please schedule a follow-up visit with your personal physician for further evaluation and treatment within 3-5days. If your symptoms persist, change or worsen significantly before you can contact your personal physician then please, without delay, go to the emergency department for further evaluation. Patient Language: Arabic Prescriptions: New amoxicillin 875 mg tablet 875 mg PO Q12H 7 Days Qty: 14 0RF fluticasone propionate [Flonase Allergy Relief] 50 mcg/actuation spray,suspension 1 spray intranasal DAILY Qty: 16 0RF Rx Instructions: administer into each nostril No Action fluconazole 150 mg tablet 150 mg PO ONCE Qty: 1 0RF Rx Instructions: as a single dose calcium carbonate-vitamin D3 600 mg-5 mcg (200 unit) Tablet 1 tablet PO DAILY diphenhydramine HCl [Benadryl Allergy] 25 mg Tablet 25 mg PO HS PRN (Reason: Congestion) ep-ak-nicp-FA-Ca carb-vit K 18 mg iron-400 mcg-500 mg Tablet 1 tablet PO DAILY metronidazole [Metrogel] 1 % gel 1 applic TOPICAL DAILY PRN (Reason: Rash) Qty: 60 0RF Rx Instructions: Face from wearing masks Follow-up/Referrals: Elba Garcia MD [Primary Care Provider] - 3 Days Time of Disposition: 09:38
[2024-10-12 09:14] VITALS: BP 114/61; PULSE 69; RESP 16; TEMP 37.1; O2SAT 99
--- OUTSIDE RECORDS SUMMARY | 2024-10-12 09:18 | XMS_ITS | Clinical Summary ---
Author Organization [facility] Virtual Care Address [address] [place] [phone] Phone Care Team Providers Care Automobile Damage Appraiser Name Role Phone Elba Garcia MD Primary Care Provider [phone] Allergies No known active allergies Medications alendronate (FOSAMAX) 70 mg tablet take 1 tablet by oral route every week in the morning, at least 30 min before first food, beverage, or medication of day 0 0 6 Active estradioL (VAGIFEM) 10 mcg tablet INSERT 1 TABLET VAGINALLY TWICE WEEKLY 4 Active metroNIDAZOLE (METROGEL) 1 % gel APPLY TOPICALLY TO FACE DAILY NEEDED FOR RASH 4 Active irvewlws98-qeyh -Lmfolate-algal 27 mg iron-1.13 mg-581.92 mg capsule Take by mouth Active traMADoL (ULTRAM) 50 mg tablet Take 1 tablet (50 mg total) by mouth every 6 (six) hours as needed for pain 30 tablet 4 Active traMADoL (ULTRAM) 50 mg tablet Take 1 tablet (50 mg total) by mouth every 6 (six) hours as needed for pain 30 tablet 4 Active amoxicillin-cla vulanate (AUGMENTIN) 875-125 mg per tablet Take 1 tablet by mouth 2 (two) times a day 14 tablet 4 Active Active Problems Problem Noted Date Diagnosed Date Mucous cyst of digit of hand 03/09/2024 Mass of finger of right hand 03/07/2024 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 CARDIAC CATHETERIZATION COLONOSCOPY Medical History Medical History Date Comments Mass of finger of right hand 03/07/2024 Osteophyte of right hand 03/07/2024 Incomplete right bundle bran ch block (RBBB) 09/12/2015 Incomplete right bundle bran ch block Motion sickness Family History Medical History Relation Name Comments Diabetes Father Diabetes mellit us; Hypertension Mother Hypertension; Relation Name Status Comments Father Mother Social History Tobacco Use Types Packs/Day Years Used Date Smoking Tobacco: Never Smokeless Tobacco: Never Tobacco Cessation:Counseling Given: Not Answered Alcohol Use Standard Drinks/Week Comments Yes 0 (1 standard drink = 0.6 oz pur e alcohol) AUDIT-C Answer Date Recorded Q1: How often do you have a drink containing alc ohol? 2-4 times a month 03/13/2024 Q2: How many drinks containi ng alcohol do you have on a typical day when you are drinking? 1 or 2 03/13/2024 Q3: How often do you have si x or more drinks on one occasion? Never 03/13/2024 Personal Safety Answer Date Recorded Have you ever been in or are you currently in a harmful physical or emotional relationship or is someone making you feel afraid or unsafe? 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 Gender Identity Not on file Sexual Orientation Not on file Obstetrics History Last Filed Vital Signs Vital Sign Reading Time Taken Comments Blood Pressure 134/86 03/13/2024 9:55 AM CDT Pulse 53 03/13/2024 9:55 AM CDT Temperature 36.8 C (98.3 F) 03/13/2024 9:25 AM CDT Respiratory Rate 17 03/13/2024 9:55 AM CDT Oxygen Saturation 99% 03/13/2024 9:55 AM CDT Inhaled Oxygen Concentration - - Weight 62.7 kg (138 lb 3.2 oz) 03/13/2024 7:03 A M CDT Height 167.6 cm (5' 6 ) 03/13/2024 7:03 AM CDT Body Mass Index 22.31 03/13/2024 7:03 AM CDT Plan of Treatment Health Maintenance Due Date Last Done Comments Breast Cancer Screening-Mammogram 1965 Cervical Cancer Screening 1965 Colon Cancer Screening-Colonoscopy 1965 Depression Screening 1965 Hepatitis C Screening 1965 DTaP/Tdap/Td Vaccine (1 - Tdap) 11/11/1975 Hepatitis B Screening 1982 Regular Well Visit/Exam 18-64 1982 Zoster Vaccine (1 of 2) 2014 Influenza Vaccine (#1) 2024 Pneumococcal vaccine <65 Aged Out No longer eligible based on patient's age to complete this topic Insurance [facility] Care Teams Automobile Damage Appraiser Relationship Specialty Start Date End Date Elba Garcia MD PCP - General Family Medicine 11/11/23
--- OUTSIDE RECORDS SUMMARY | 2024-10-12 09:19 | XMS_ITS | Referral Summary ---
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
[2024-10-12 09:31] LABS: EDSTREPNEGPOS1 Negative (Negative)
== END 2024-10-12 09:40 | disposition home or self-care (01) ==
PROVIDERS: Emergency Provider Nurse Practitioner Family; PCP Family Medicine
DX: H66.002 Acute suppurative otitis media without spontaneous rupture of ear drum, left ear (principal)
CPT/HCPCS: 87081; 87880; 99213; G0463

== ENCOUNTER 2025-01-03 14:28 | Emergency (ER) | payer OTHER, SELFPAY ==
--- OUTSIDE RECORDS SUMMARY | 2025-01-03 14:32 | XMS_ITS | Referral Summary ---
Author Organization [facility] Virtual Care Address [address] [place] [phone] Phone Care Team Providers Care Zumba Instructor Name Role Phone Elba Garcia MD Primary Care Provider [phone] Encounters Date Type Department Care Team Description 01/02/2025 11:10 AM CDT - 01/02/2025 11:59 PM CDT Hospital Encounter [facility] Medical Office Bldg [facility] [address] [place] [phone] Screening mammogram, encounter for Discharge Disposition: Discharge to home or self care from Last 3 Months Allergies No known active allergies Medications alendronate [...] FACE DAILY NEEDED FOR RASH 4 Active kzhitpxn68-cgyj -Lmfolate-algal 27 mg iron-1.13 mg-581.92 mg capsule [...] on file 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
--- OUTSIDE RECORDS SUMMARY | 2025-01-03 14:32 | XMS_ITS | Clinical Summary ---
Author Organization [facility] Virtual Care Address [address] [place] [phone] Phone Care Team Providers Care Finished Cigar Maker Name Role Phone Elba Garcia MD Primary Care Provider [phone] Allergies No known active allergies Medications alendronate [...] FACE DAILY NEEDED FOR RASH 4 Active aiakpnic64-znzk -Lmfolate-algal 27 mg iron-1.13 mg-581.92 mg capsule [...] angina pectoris 09/12/2015 Overview (11/13/2016): Unstable angina Encounters Date Type Department Care Team Description 01/02/2025 11:10 AM CDT - 01/02/2025 11:59 PM CDT Hospital Encounter [facility] Medical Office Bldg 1 Breast [facility] [address] [facility] [address] [place] [phone] Screening mammogram, encounter for Discharge Disposition: Discharge to home or self care from Last 3 Months Surgical History Surgery Date Site/Laterality Comments TUBAL [...] on file Legal Sex Female 3:53 AM 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 TENDER Gender Identity Not on file Sexual Orientation Not on file Obstetrics History Para Term AB IAB SAB Ectopic Multiple Livin g Live Births 3 Date Outcome GA Total Labor Labor/2nd/3rd Weight Sex Type Anes PTL Zeina A1 A5 Name Clin Last Filed Vital Signs Vital Sign Reading [...] 01/02/2025 11:26 AM CDT Plan of Treatment Health Maintenance Due Date Last Done Comments Breast Cancer Screening-Mammogram 1965 Cervical Cancer Screening 1964 Colon Cancer Screening-Colonoscopy 1964 Depression Screening 1964 Hepatitis C Screening 1964 DTaP/Tdap/Td Vaccine (1 - Tdap) 11/11/1975 Hepatitis B Screening 1982 Regular Well Visit/Exam 18-64 1982 Zoster Vaccine (1 of 2) 2014 Influenza Vaccine (Season Ended) 2025 Pneumococcal vaccine <65 Aged Out No longer eligible based on patient's age to complete this topic Insurance [employer] [facility] Care Teams Finished Cigar Maker Relationship Specialty Start Date End Date Elba Garcia MD PCP - General Family Medicine 11/11/23
--- OUTSIDE RECORDS SUMMARY | 2025-01-03 14:32 | XMS_ITS | Encounter Summary ---
Author Organization [facility] Healthcare Address [address] [place] [address] Care Team Providers Care Securities Research Analyst Name Role Phone Elba Garcia MD Primary Care Provider [phone] Reason for Referral * Diagnostic Imaging (Routine) - Closed Specialty Diagnoses / Procedures Referred By Contac t Referred To Contact Diagnoses Screening mammogram, encounter for Procedures Screening Mammogram Bilateral W Ru Screening Mammogram, Self Referral ID Status Reason Start Date Expiration Date Visits Re quested Visits Authorized [id number] Closed 01/02/2025 02/01/2026 1 1 * Diagnostic Imaging (Routine) - Closed Specialty Diagnoses / Procedures Referred By Contac t Referred To Contact Diagnoses Screening mammogram, encounter for Procedures Screening Mammogram Bilateral W Ru Screening Mammogram, Self Referral ID Status Reason Start Date Expiration Date Visits Re quested Visits Authorized [id number] Closed 01/02/2025 02/01/2026 1 1 Reason for Visit * Diagnostic Imaging (Routine) - Closed Specialty Diagnoses / Procedures Referred By Contac t Referred To Contact Diagnoses Screening mammogram, encounter for Procedures Screening Mammogram Bilateral W Ru Screening Mammogram, Self Referral ID Status Reason Start Date Expiration Date Visits Re quested Visits Authorized [id number] Closed 01/02/2025 02/01/2026 1 1 Encounter Details Date Type Department Care Team (Latest Contact Info) Description 01/02/2025 11:10 AM CDT - 01/02/2025 11:59 PM CDT Hospital Encounter [facility] Medical Office [facility] [address] [address] Screening mammogram, encounter for Discharge Disposition: Discharge to home or self care Social History Tobacco Use Types Packs/Day Years Used Date Smoking Tobacco: Never Smokeless Tobacco: Never Alcohol Use Standard Drinks/Week Comments Yes 0 [...] on file 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 Gender Identity Not on file Sexual Orientation Not on file documented as of this encounter Last Filed Vital Signs Vital Sign Reading Time Taken Comments Blood Pressure - - Pulse - - Temperature - - Respiratory Rate - - Oxygen Saturation - - Inhaled Oxygen Concentration - - Weight 62.7 kg (138 lb 3.7 oz) 01/02/2025 11:26 AM CDT Height 167.6 cm (5' 5.98) 01/02/2025 11:26 AM C DT Body Mass Index 22.32 01/02/2025 11:26 AM CDT documented in this encounter Medications at Time of Discharge alendronate (FOSAMAX) 70 mg tablet take 1 tablet by oral route every week in the morning, at least 30 min before first food, beverage, or medication of day 0 0 09/12/2015 amoxicillin-clav ulanate (AUGMENTIN) 875-125 mg per tablet Take 1 tablet by mouth 2 (two) times a day 14 tablet 04/13/2024 estradioL (VAGIFEM) 10 mcg tablet INSERT 1 TABLET VAGINALLY TWICE WEEKLY 02/22/2024 metroNIDAZOLE (METROGEL) 1 % gel APPLY TOPICALLY TO FACE DAILY NEEDED FOR RASH 12/19/2023 arabvbqx32-kker- Lmfolate-algal 27 mg iron-1.13 mg-581.92 mg capsule Take by mouth traMADoL (ULTRAM) 50 mg tablet Take 1 tablet (50 mg total) by mouth every 6 (six) hours as needed for pain 30 tablet 03/13/2024 traMADoL (ULTRAM) 50 mg tablet Take 1 tablet (50 mg total) by mouth every 6 (six) hours as needed for pain 30 tablet 03/13/2024 documented as of this encounter Discharge Disposition Disposition Code Departure Means Destination Discharge to home or self care documented in this encounter Plan of Treatment Pending Results Name Type Priority Associated Diagnoses Date /Time Screening Mammogram Bilateral W Ru Imaging Schedule Routine, Read Routine (OP Routine) Screening mammogram, encounter for 01/02/2025 11:25 AM CDT Scheduled Orders Name Type Priority Associated Diagnoses Orde r Schedule Screening Mammogram Bilateral W Ru Imaging Schedule Routine, Read Routine (OP Routine) Screening mammogram, encounter for Expected: 01/02/2025, Expires: 03/04/2026 Screening Mammogram Bilateral W Ru Imaging Schedule Routine, Read Routine (OP Routine) Screening mammogram, encounter for Once for 1 Occurrences starting 01/02/2025 until 01/02/2025 documented as of this encounter Visit Diagnoses Diagnosis Screening mammogram, encounter for documented in this encounter Care Teams Securities Research Analyst Relationship Specialty Start Date End Date Elba Garcia MD PCP - General Family Medicine 11/11/23 documented as of this encounter
[2025-01-03 14:34] VITALS: BP 117/66; PULSE 64; RESP 16; TEMP 36.4; O2SAT 97
--- NOTE | 2025-01-03 14:37 | ED_ITS ---
HPI - Female Genitourinary General Chief complaint: Urogenital-Female Stated complaint: uti Time Seen by Provider: 01/03/25 14:37 Source: patient and RN notes reviewed Mode of arrival: ambulatory Limitations: no limitations History of Present Illness HPI Narrative: 59-year-old female presents Express Care complaining of urinary symptoms for 1 day. Patient reports having dysuria, increased frequency, hematuria, and suprapubic pain. Patient reports she has trace amount of blood in her urine after she finishes urinating. Patient denies any vaginal discharge, vaginal bleeding, pelvic pain, or any concerns for STIs. Patient took an azos tablet prior to arrival to help with symptoms. Patient denies any fevers, body aches, chills, nausea, vomiting, diarrhea. Patient denies any significant past medical history. Related Data Home Medications ?Medication ?Instructions ?Recorded ?Confirmed ?Last Taken ?Type calcium 600 mg (as 1 tablet PO DAILY 09/17/22 11/20/24 Unknown History carbonate)-vitamin D3 5 mcg (200 unit) tablet diphenhydramine HCl 25 mg tablet 25 mg PO HS PRN Congestion 09/17/22 11/20/24 Unknown History (Benadryl Allergy) lrkcqwnx-tdq-jggr-FA-Ca carb-vit K 1 tablet PO DAILY 09/17/22 11/20/24 Unknown History 18 mg iron-400 mcg-500 mg tablet Allergies Allergy/AdvReac Type Severity Reaction Status Date / Time No Known Allergies Allergy Verified 01/03/25 14:40 Review of Systems Review of Systems: CONSTITUTIONAL: Denies fever, chills, body aches, or sweats. EYES: Denies visual changes, redness, or discharge. ENT: Denies rhinorrhea, congestion, sore throat, or otalgia. CARDIOVASCULAR: Denies chest pain, palpitations, or edema. RESPIRATORY: Denies cough or dyspnea. GASTROINTESTINAL: Denies abdominal pain, nausea, vomiting, or diarrhea. GENITOURINARY: Positive for dysuria, increased frequency, suprapubic pain, hematuria. Negative hesitancy, vaginal discharge, vaginal bleeding SKIN: Denies rash or itching. MUSCULOSKELETAL: Denies back pain, joint pain, or myalgia. NEUROLOGIC: Denies headache, numbness, or weakness. PSYCHIATRIC: Denies anxiety or depression. All other systems reviewed are negative, except as documented in HPI. FOR[facility]LY [facility], [facility] Past Medical History Medical History Osteoporosis Patient denies significant medical history Family History Family History Mother Family history of elevated blood lipids Hypertension Father Diabetes mellitus Family history of diabetes mellitus in first degree relative Grandparent Family history of cardiovascular disease Sibling Carotid artery embolism Arthritis, rheumatoid Social History Social History Smoking status: Never smoker Second hand tobacco smoke exposure: No Alcohol intake: current Substance use: never Substance use type: does not use Lack of Transportation: No Lack of Food: Never True Current Housing: I Have Housing Concerned About Future Housing: No Difficulty Paying Gas/Electric Bills: No Difficulty Paying for Meds: No Currently Unemployed: No Education: Associate Degree Difficulty w/ Childcare or Family Care: No Spiritual care concerns: No Comments At the time of my signature, I reviewed and agree with the nursing past medical, surgical, social, and family history. There is no relevant family history pertinent to the patient complaint. Exam Narrative: GENERAL: This is a well-nourished, well-developed adult, in no apparent distress. They are non ill-appearing, nontoxic appearing. HEAD: normocephalic, atraumatic. EYES: Sclera clear/white. Vision is grossly intact. Conjunctiva normal bilaterally. Extraocular movements intact. EARS: External ears normal,Hearing grossly intact. NOSE: External nose normal THROAT: Mucous membranes moist NECK: Normal range of motion CARDIOVASCULAR: Regular rate and rhythm. Normal S1 and S2. No clicks, gallops, rubs, or murmurs. RESPIRATORY: Respiratory rate normal, respiratory effort nonlabored, no respiratory distress. Lung sounds clear to auscultation throughout. Lung sounds equal bilaterally. No adventitious lung sounds heard. GASTROINTESTINAL: Abdomen soft, flat, non-tender, nondistended. Bowel sounds are active. No hepato-splenomegaly, or palpable masses. No guarding. No rebound tenderness. SKIN: warm, Dry, intact with no suspicious lesions or rash, good texture and turgor. NEURO: awake, alert, and oriented to person, place and time. There were no obvious focal neurologic abnormalities. EXTREMITIES: No joint tenderness, effusion, or edema noted. BACK: Nontender without deformity. No CVA tenderness. Course Course Emergency Course: Portions of this record may have been created with voice recognition software Level of Care: Express Care Visit Vital Signs Vital signs: Vital Signs Temperature 97.6 F 01/03/25 14:34 Pulse Rate 64 01/03/25 14:34 Respiratory Rate 16 01/03/25 14:34 Blood Pressure 117/66 01/03/25 14:34 Pulse Oximetry 97 01/03/25 14:34 Oxygen Delivery Room Air 01/03/25 14:34 Temperature 97.6 F 01/03/25 14:34 Pulse Rate 64 01/03/25 14:34 Respiratory Rate 16 01/03/25 14:34 Blood Pressure 117/66 01/03/25 14:34 Pulse Oximetry 97 01/03/25 14:34 Oxygen Delivery Room Air 01/03/25 14:34 MDM - Female Genitourinary MDM Narrative Medical decision making narrative: Urine dipstick likely contaminated from her azo use today. Urine culture pending. Patient's symptoms are consistent with a urinary tract infection. Offered patient treatment are to wait for culture results patient requested to go ahead and start treatment. Patient's previous cultures have shown E coli. Will go ahead and treat with Bactrim it showed previous susceptibility in previous urine cultures. Discussed physical exam findings. Advised supportive measures and signs/symptoms to go to the ER. Pt is appropriate for outpt treatment and f/u. Differential Diagnosis Differential diagnosis: Likely urinary tract infection, cystitis and other (Pyelonephritis) Lab Data Attestation: I reviewed the patient's lab results. Labs: Lab Results 01/03/25 Range/Units 14:42 POC Urine Color [place] POC Urine Clarity Cloudy POC Urine pH 6.5 POC Ur Specif [place] 1.010 POC Urine Protein 1+ (Negative) POC Ur Glucose (UA) Trace (Negative) POC Urine Ketones Negative (Negative) POC Urine Blood 2+ (Negative) POC Urine Nitrite Positive (Negative) POC Urine Bilirubin Negative (Negative) POC Urine Urobilinogen 2.0 POC U Leukocyte Esteras 3+ (Negative) Discharge Plan Discharge Clinical Impression: Urinary tract infection Qualifiers: Urinary tract infection type: site unspecified Hematuria presence: with hematuria Qualified Code(s): N39.0 - Urinary tract infection, site not specified Patient Disposition: Home Condition: Stable Instructions: Antibiotic Form, Urinary Tract Infection in Women (ED) Additional Instructions: Take the antibiotic as prescribed The urine will be sent of for a culture to identify what type of bacteria is causing your infection. If the culture shows that the antibiotic will not get rid of your infection, you will be notified and a new antibiotic will be called in for you. Increase water intake you will need to follow up with your PCP 3-5 days. Go to the ER for any worsening symptoms, abdominal pain, fevers, nausea, vomiting, or any other concerns Patient Language: Croatian Prescriptions: New sulfamethoxazole-trimethoprim [Bactrim DS] 800-160 mg tablet 1 tablet PO Q12H 7 Days Qty: 14 0RF No Action fluticasone propionate [Flonase Allergy Relief] 50 mcg/actuation spray,suspension 1 spray intranasal DAILY Qty: 16 0RF Rx Instructions: administer into each nostril calcium carbonate-vitamin D3 600 mg-5 mcg (200 unit) Tablet 1 tablet PO DAILY diphenhydramine HCl [Benadryl Allergy] 25 mg Tablet 25 mg PO HS PRN (Reason: Congestion) sg-oe-kmaz-FA-Ca carb-vit K 18 mg iron-400 mcg-500 mg Tablet 1 tablet PO DAILY metronidazole [Metrogel] 1 % gel 1 applic TOPICAL DAILY PRN (Reason: Rash) Qty: 60 0RF Rx Instructions: Face from wearing masks Follow-up/Referrals: Elba Garcia MD [Primary Care Provider] - Time of Disposition: 14:55
[2025-01-03 14:47] LABS: EDUAAPPEAR Cloudy; EDUABILI Negative (Negative); EDUABLOOD 2+ (Negative); EDUACOLOR1 Orange; EDUAGLUCOSE Trace (Negative); EDUAKETONE Negative (Negative); EDUALEUKO 3+ (Negative); EDUANITRATE Positive (Negative); EDUAPH 6.5; EDUAPROTEIN 1+ (Negative)
== END 2025-01-03 14:58 | disposition home or self-care (01) ==
PROVIDERS: PCP Family Medicine
DX: N39.0 Urinary tract infection, site not specified (principal); M81.0 Age-related osteoporosis without current pathological fracture
CPT/HCPCS: 81003; 87077; 87086; 87186; 99213; G0463